=== PATIENT | female | born 1970 | race Caucasian/White ===

== ENCOUNTER 2017-01-19 14:13 | Emergency (ER) | payer OTHER ==
[~2017-01-19] VITALS: Ht 154.9 cm; Wt 68.0 kg
--- NOTE | 2017-01-19 14:48 | ED CARDIAC/CP/PALPITATIONS ---
History of Present Illness General Chief Complaint: Neck/Upper Back Pain/Injury Stated Complaint: UPPER BACK PAIN Source: patient Exam Limitations: no limitations Vital Signs & Intake/Output Vital Signs & Intake/Output Vital Signs Date Time Temp Pulse Resp B/P B/P Pulse O2 O2 Flow FiO2 Mean Ox Delivery Rate 01/19 1542 189/77 01/19 1541 97.4 78 18 197/96 99 Room Air 01/19 1417 97.6 114 20 200/100 99 Room Air Allergies Coded Allergies: NO KNOWN ALLERGIES (03/06/12) Reconcile Medications Ibuprofen 800 MG TABLET 1 TAB PO TID paIN Losartan Potassium (Cozaar) 25 MG TABLET 1 TAB PO DAILY htn Triage Note: PT TO ED C/O STABBING UPPER LEFT BACK PAIN. DENIES ANY OBVIOUS INJURY. HAS NOT TAKEN OTC MEDS. STATES PAIN COMES AND GOES. DECLINGING MEDS. Triage Nurses Notes Reviewed? yes Onset: Abrupt Duration: hour(s):, constant Timing: recent history Quality/Severity: moderate, severe Location: back Radiation: no radiation HPI: 46-year-old female comes into emergency room complaints of left posterior back pain. Patient reports that she's had some intermittent pain for the past couple months. Today she noticed some pain when she was walking up and down steps doing laundry. The pain was more continuous today. Denies any chest pain, shortness of breath, nausea vomiting, fever or chills , or diaphoresis. Denies any past medical history does not take any medications for anything. Denies any family history of significant heart disease less than 55 years of age. Patient comes in for further evaluation. Symptoms began around 10 AM this morning. (SYLVESTER BONILLA) Past History Travel History Traveled to [place] past 21 day No Medical History Any Pertinent Medical History? none Surgical History Surgical History: non-contributory Psychosocial History What is your primary language Thai Tobacco Use: Never used ETOH Use: denies use Illicit Drug Use: denies illicit drug use Family History Hx Contributory? No (SYLVESTER BONILLA) Review of Systems Review of Systems Constitutional: Reports: no symptoms. EENTM: Reports: no symptoms. Respiratory: Reports: no symptoms. Cardiovascular: Reports: see HPI. GI: Reports: no symptoms. Genitourinary: Reports: no symptoms. Musculoskeletal: Reports: see HPI. Skin: Reports: no symptoms. Neurological/Psychological: Reports: no symptoms. Hematologic/Endocrine: Reports: no symptoms. Immunologic/Allergic: Reports: no symptoms. All Other Systems: Reviewed and Negative (SYLVESTER BONILLA) Physical Exam Physical Exam General Appearance: well developed/nourished, alert, awake, anxious Head: atraumatic Eyes: Bilateral: normal appearance, EOMI. Ears, Nose, Throat: normal pharynx, normal ENT inspection, hearing grossly normal Neck: normal inspection, full range of motion Respiratory: normal breath sounds, no respiratory distress Cardiovascular: regular rate/rhythm Peripheral Pulses: 2+ dorsalis pedis (R), 2+ dorsalis pedis (L) Gastrointestinal: soft Back: point tenderness left mid upper back paraspinal region Extremities: normal inspection, normal range of motion, no edema Neurologic/Psych: awake, alert, oriented x 3, normal gait, normal mood/affect Skin: intact, normal color Diagram Chest, Abdomen, Back: 1) tenderness Core Measures ACS in differential dx? Yes Severe Sepsis Present: No Septic Shock Present: No (SYLVESTER BONILLA) Progress Differential Diagnosis: AMI, aortic dissection, cholecystitis, costochondritis, hyperkalemia, hypovolemia, hyperventilation, intracranial hemorrhage, musculoskeletal pain, myocarditis, pancreatitis, pericarditis, pneumonia, pneumothorax, pulmonary embolism, PUD/GERD, PVCs/PACs, respiratory failure, rib fracture, sepsis, unstable angina Plan of Care: Orders Procedure Date/time Status HUMAN BETA HCG SCREEN 01/19 144 Complete Telemetry/Director Women 01/19 1441 Active TROPONIN LEVEL 01/19 144 Complete D-DIMER 01/19 1440 Complete COMPREHENSIVE METABOLIC PANEL 01/19 1440 Complete CBC WITHOUT DIFFERENTIAL 01/19 1440 Complete EKG 01/19 1440 Active Laboratory Tests 01/19/17 1449: Total Beta HCG Cancelled 01/19/17 1449: Anion Gap 15, Estimated GFR > 60, BUN/Creatinine Ratio 15.7, Glucose 114 H, Calcium 9.3, Total Bilirubin 0.4, AST 20, ALT 26, Alkaline Phosphatase 86, Troponin I < 0.01, Total Protein 7.8, Albumin 4.7, Globulin 3.1, Albumin/ Globulin Ratio 1.5, Total Beta HCG NEGATIVE, D-Dimer 220, CBC w Diff NO MAN DIFF REQ, RBC 4.76, MCV 84.0, MCH 27.1, RDW 16.4 H, MPV 7.9, Gran % 61.9, Lymphocytes % 30.3, Monocytes % 5.6, Eosinophils % 1.9, Basophils % 0.3, Absolute Granulocytes 7.1 H, Absolute Lymphocytes 3.5 H, Absolute Monocytes 0.6, Absolute Eosinophils 0.2, Absolute Basophils 0, PUBS MCHC 32.3 L Diagnostic Imaging: Viewed by Me: Radiology Read. Discussed w/RAD: Radiology Read. Radiology Impression: SERVICE DATE: 01/19/17 EXAM TYPE: RAD - XRY-CHEST XRAY, PA AND LATERAL EXAMINATION: XR CHEST CLINICAL INFORMATION: Back pain. Hypertension. COMPARISON: None TECHNIQUE: 2 views of the chest were obtained. FINDINGS: The cardiac and the mediastinal contour is normal. The heart size is normal. There is no mediastinal widening. Thoracic aortic silhouette normal. No pulmonary vascular congestion. Lungs are clear. No pleural effusion or pneumothorax. IMPRESSION: Normal chest. Initial ED EKG: normal intervals, normal p-waves, normal QRS complex, normal sinus rhythm, rate (90), nonspecific ST T wave chg Comments: 01/19/2017 4:28:57 PM Patient clinically looks well. Patient is nontoxic-appearing. Patient is in no apparent distress. Patient is currently not having any back pain. The back pain that she was getting this morning she reports that only lasts a second or 2 and then would go away intermittently. There is no widening mediastinum. There is no severe discrimination and blood pressures between both arms. Patient clinically looks well. Very low suspicion for any type of aortic dissection at this time. D-dimer negative. No suspicion for pulmonary embolism or acute VT. Intermittent pain has been going on greater than 4 hours so second EKG and troponin is not necessary at this time. Patient will follow up with her primary care doctor. Return if any other concerns. Pain is point reproducible in upper back. Likely muscular in nature. Take ibuprofen as needed for pain. Return if any other concerns. case discussed with dr triplett. Patient started on losartan for blood pressure. Needs to have rechecked again in few days. (ANTONINO HWITT,SYLVESTER) Departure Departure Disposition: HOME OR SELF CARE Condition: Stable Clinical Impression Primary Impression: Back pain Referrals: PATIENT HAS NO PRIMARY CARE DR (PCP/Family) Additional Instructions: Take ibuprofen and losartan as prescribed. Follow-up with your primary care doctor to have blood pressure reevaluated as well as her pain. Return to emergency room immediately if the pain in her back gets worse or more persistent for CT scan of your chest. Please go over all results of today's visit with your primary care doctor. Contact your primary care doctor to let them know you were here in the emergency room. There may be nonspecific findings which may not be related to your visit today here in the emergency room but may require further evaluation and chronic monitoring by your primary care doctor. If you had a laceration today the chance of foreign body always remains. You should follow-up with your primary care doctor for recheck in 3-5 days for a wound check. If you had an x-ray done there is a chance that a fracture could have been missed on initial read and you should follow-up with your primary care doctor for repeat x-rays if symptoms persist. If your blood pressure was elevated here in the emergency room please have rechecked by her primary care doctor within the next 48 hours by your primary care doctor. If you were prescribed a narcotic here in the emergency room or any type of controlled substances you're not allowed to drive while taking this medication or operate any type of heavy machinery. Narcotics can make you feel lightheaded dizziness nausea and can cause constipation. You may need to machine pecan picker a stool softener. Thank you for choosing [facility] emergency room. Please return to the emergency room immediately if you have any other concerns worsening of symptoms. Departure Forms: Customer Survey General Discharge Information Prescriptions: Current Visit Scripts Losartan Potassium (Cozaar) 1 TAB PO DAILY #30 TAB Ibuprofen 1 TAB PO TID #20 TAB (SYLVESTER BONILLA) PA/DRYING MACHINE OPERATOR Co-Sign Statement Statement: ED Attending supervision documentation- [] I saw and evaluated the patient. I have also reviewed all the pertinent lab results and diagnostic results. I agree with the findings and the plan of care as documented in the PA's/DRYING MACHINE OPERATOR's documentation. [X] I have reviewed the ED Record and agree with the PA's/DRYING MACHINE OPERATOR's documentation. [] Additions or exceptions (if any) to the PAs/DRYING MACHINE OPERATOR's note and plan are summarized below: [] (GALDINO HESS,TISH Winkler) Critical Care Note Critical Care Note Critical Care Time: non-applicable (SYLVESTER BONILLA)
[2017-01-19 15:06] LABS: ABSOLUTE BASOPHIL COUNT 0 /CUMM (0.0-0.2); ABSOLUTE EOSINOPHIL COUNT 0.2 /CUMM (0.0-0.7); ABSOLUTE GRANULOCYTE CT 7.1 /CUMM (1.4-6.5); ABSOLUTE LYMPH COUNT 3.5 /CUMM (1.2-3.4); ABSOLUTE MONOCYTE COUNT 0.6 /CUMM (0.10-0.60); BASOPHIL % 0.3 % (0.0-2.0); EOSINOPHIL % 1.9 % (0-5); GRANULOCYTE % 61.9 % (42.2-75.2); MEAN CORPUSCULAR HGB 27.1 PG (27.0-31.0); MEAN CORPUSCULAR HGB CONC 32.3 G/DL (33.0-37.0); MEAN PLATELET VOLUME 7.9 FL (7.4-10.4); PLATELET COUNT 438 /CUMM (130-400); RBC DISTRIBUTION WIDTH 16.4 % (11.5-14.5); RED BLOOD CELL CT 4.76 /CUMM (4.20-5.40); WHITE BLOOD CELL COUNT 11.5 /CUMM (4.8-10.8)
[2017-01-19 15:42] VITALS: BP 189/77
--- NOTE | 2017-01-19 15:46 | RADIOLOGY REPORT ---
EXAMINATION: XR CHEST CLINICAL INFORMATION: Back pain. Hypertension. COMPARISON: None TECHNIQUE: 2 views of the chest were obtained. FINDINGS: The cardiac and the mediastinal contour is normal. The heart size is normal. There is no mediastinal widening. Thoracic aortic silhouette normal. No pulmonary vascular congestion. Lungs are clear. No pleural effusion or pneumothorax. IMPRESSION: Normal chest.
[2017-01-19] MEDS ORDERED: IBUPROFEN800 M1 PO (16:25)
[2017-01-19] MEDS ORDERED: COZAAR25 M1 PO (16:25)
== END 2017-01-19 16:39 ==
LOC: ERH 14:13
PROVIDERS: Physician Assistant Medical
DX: M54.6 Pain in thoracic spine (principal)
CPT/HCPCS: 93005; 93010